=== PATIENT | male | born 1990 | race Caucasian/White ===

== ENCOUNTER 2018-04-22 17:45 | Emergency (ER) | payer SELFPAY ==
[~2018-04-22] VITALS: Ht 177.8 cm; Wt 97.5 kg
== END 2018-04-22 17:52 | disposition home or self-care (01) ==
LOC: ED 17:45
DX: S69.92XA Unspecified injury of left wrist, hand and finger(s), initial encounter (principal); W22.8XXA Striking against or struck by other objects, initial encounter

== ENCOUNTER 2021-04-06 14:25 | Emergency (ER) | payer BC ==
[~2021-04-06] VITALS: Ht 177.8 cm; Wt 97.5 kg
--- NOTE | 2021-04-07 13:08 | EKG ---
[facility] [address] [facility] [place] [address] Signed Normal sinus rhythm Normal ECG No previous ECGs available Confirmed by LIVE KING MD ([id number] on 04/07/2021 1:08:05 PM Electronically Signed By: LIVE KING MD 04/07/21 1308 PATIENT NAME: ROXANA CAMPBELL Electrocardiogram DATE OF : 89 PHYSICIAN: LIVE KING MD REPORT #: [id number] REPORT IS CONFIDENTIAL AND NOT TO BE RELEASED WITHOUT AUTHORIZATION
== END 2021-04-06 17:54 | disposition home or self-care (01) ==
LOC: ED 14:25
DX: R00.2 Palpitations (principal); Z88.5 Allergy status to narcotic agent
CPT/HCPCS: 71045; 80053; 84484; 85025; 93005; 93010; 99285-25